=== PATIENT | female | born 1970 | race Caucasian/White ===

== ENCOUNTER 2019-07-17 20:41 | Emergency (ER) | payer BC ==
[~2019-07-17] VITALS: Ht 165.1 cm; Wt 95.3 kg
[2019-07-17 20:41] VITALS: BP_SYST 130
[2019-07-17 21:35] LABS: BASOPHILS % (AUTO) 0.5 % (0.0-2.0); EOSINOPHILS % (AUTO) 0.3 % (0.0-4.0); HEMATOCRIT 29.7 % (36-48); HEMOGLOBIN 9.6 g/dL (12.0-16.0); LYMPHOCYTES # (AUTO) 1.9 K/uL (1.0-5.5); LYMPHOCYTES % (AUTO) 24.8 % (20.5-51.5); MEAN CORPUSCULAR HEMOGLOBIN 26 pg (27-31); MEAN CORPUSCULAR HGB CONC 32 % (32-36); MEAN CORPUSCULAR VOLUME 81 fL (79.0-98.0); MONOCYTES # (AUTO) 0.4 K/uL (0.0-1.0); MONOCYTES % (AUTO) 5.8 % (1.7-9.3); NEUTROPHILS # (AUTO) 5.3 K/uL (1.8-7.7); NEUTROPHILS % (AUTO) 68.6 % (40.0-70.0); PLATELET COUNT (AUTO) 381 K/uL (130-430); RED BLOOD CELL COUNT(AUTO) 3.66 MIL/uL (4.2-6.2); RED CELL DISTRIBUTION WIDTH 16.9 % (9.0-15.0); WHITE BLOOD COUNT (AUTO) 7.7 K/uL (4.8-10.8)
[2019-07-17 21:40] LABS: CALCIUM 8.7 mg/dL (8.4-11.0); CREATININE 0.77 mg/dL (0.55-1.30); POTASSIUM 3.8 mmol/L (3.5-5.1)
[2019-07-17 21:52] LABS: ALBUMIN 3.4 g/dL (3.4-4.8)
[2019-07-17 22:05] LABS: TOTAL BILIRUBIN 0.4 mg/dL (0.0-1.0)
[2019-07-17 22:48] LABS: BILIRUBIN,URINE NEGATIVE (NEGATIVE); BLOOD, URINE 3+ (NEGATIVE); CLARITY/URINE CLEAR (CLEAR); COLOR,URINE YELLOW (YELLOW); GLUCOSE,URINE NEGATIVE (NEGATIVE); KETONES,URINE NEGATIVE (NEGATIVE); LEUKOCYTE ESTERASE ,URINE NEGATIVE (NEGATIVE); NITRITE, URINE NEGATIVE (NEGATIVE); PROTEIN URINE TRACE (NEGATIVE); UROBILINOGEN,URINE 0.2 (0.2-1.0)
[2019-07-17 22:53] LABS: BACTERIA,URINE FEW /HPF (None Seen); RBC,URINE >100 /HPF (0-3); WBC,URINE 0-3 /HPF (0-3)
[2019-07-17 23:00] LABS: BARBITURATE, URINE NEGATIVE (NEG <=200); BENZODIAZEPINE, URINE NEGATIVE (NEG <=150); CANNABINOID, URINE NEGATIVE (NEG <=50); COCAINE, URINE NEGATIVE (NEG <=150); METHAMPHETAMINES SCREEN,URINE NEGATIVE (NEG <=500); OPIATE, URINE NEGATIVE (NEG <=100); PHENCYCLIDINE SCREEN,URINE NEGATIVE (NEG <=25); UR TRICYCLIC ANTIDEPRESSANTS NEGATIVE (NEG <=300); URINE AMPHETAMINE NEGATIVE (NEG <=500); URINE METHADONE NEGATIVE (NEG <=200); URINE OXYCODONE SCREEN NEGATIVE (NEG <=100); URINE PROPOXYPHENE SCREEN NEGATIVE (NEG <=300)
[2019-07-17] MEDS ORDERED: levETIRAcetam 500 MG TABLET PO ONE (23:30)
[2019-07-17 23:50] VITALS: BP_SYST 132
== END 2019-07-17 23:50 | disposition home or self-care (01) ==
LOC: SED 20:41
DX: G40.909 Epilepsy, unspecified, not intractable, without status epilepticus (principal)
CPT/HCPCS: 36415; 80053; 80307; 81000-TC; 84702-TC; 85025; 99284

== ENCOUNTER 2020-08-16 21:50 | Emergency (ER) | payer BC ==
[~2020-08-16] VITALS: Ht 165.1 cm; Wt 99.8 kg
[2020-08-16 21:55] VITALS: BP_SYST 108
--- NOTE | 2020-08-16 21:56 | NUR ---
Patient to ER bed 1 to gown for evaluation. Side rails up. Report given to GERRY Riggs.
--- NOTE | 2020-08-16 21:57 | NUR ---
Seizure precautions started at this time.
--- NOTE | 2020-08-16 21:58 | NUR ---
Pt brought by ambulance, A&Ox3, pt presents to ER with possible seizure, per Daughter pt was on the floor with eyes rolling after taking a shower, pt has Hx of seizures, c/o mild jaw pain, VSS, skin pink and warm, cap refill <3, respirations even and unlabored.
[2020-08-16] MEDS ORDERED: LEVE250T2 PO (22:07)
--- NOTE | 2020-08-16 22:30 | NUR ---
PIV 20 guage inserted to left AC. good blood return and flushes without difficulties. labs drawn and sent to lab for analysis.
--- NOTE | 2020-08-16 23:15 | NUR ---
Report given to October RN
--- NOTE | 2020-08-16 23:44 | NUR ---
ER Dr. Lindsey at bedside examining patient.
[2020-08-17] MEDS ORDERED: levETIRAcetam 1,000 MG IV BAG 100 ML IV ONE
--- NOTE | 2020-08-17 00:05 | NUR ---
Patient states " I have headache." Dr. Lindsey notified.
[2020-08-17 00:07] LABS: BASOPHILS % (AUTO) 0.4 % (0.0-2.0); BILIRUBIN,URINE NEGATIVE (NEGATIVE); CLARITY/URINE CLEAR (CLEAR); COLOR,URINE YELLOW (YELLOW); EOSINOPHILS % (AUTO) 0.4 % (0.0-4.0); GLUCOSE,URINE NEGATIVE (NEGATIVE); HEMATOCRIT 30.9 % (36-48); HEMOGLOBIN 9.8 g/dL (12.0-16.0); KETONES,URINE NEGATIVE (NEGATIVE); LEUKOCYTE ESTERASE ,URINE NEGATIVE (NEGATIVE); LYMPHOCYTES # (AUTO) 2.6 K/uL (1.0-5.5); LYMPHOCYTES % (AUTO) 29.3 % (20.5-51.5); MEAN CORPUSCULAR HEMOGLOBIN 26 pg (27-31); MEAN CORPUSCULAR HGB CONC 32 % (32-36); MEAN CORPUSCULAR VOLUME 82 fL (79.0-98.0); MONOCYTES # (AUTO) 0.5 K/uL (0.0-1.0); MONOCYTES % (AUTO) 5.8 % (1.7-9.3); NEUTROPHILS # (AUTO) 5.8 K/uL (1.8-7.7); NEUTROPHILS % (AUTO) 64.1 % (40.0-70.0); NITRITE, URINE NEGATIVE (NEGATIVE); PH,URINE 5.5 (5.0-8.0); PLATELET COUNT (AUTO) 352 K/uL (130-430); PROTEIN URINE NEGATIVE (NEGATIVE); RED BLOOD CELL COUNT(AUTO) 3.77 MIL/uL (4.2-6.2); RED CELL DISTRIBUTION WIDTH 17.1 % (9.0-15.0); UROBILINOGEN,URINE 0.2 (0.2-1.0)
[2020-08-17 00:08] LABS: BLOOD, URINE TRACE (NEGATIVE)
[2020-08-17] MEDS ORDERED: ACETAMINOPHEN 500 MG TABLET ONE (00:09)
[2020-08-17 00:10] LABS: CALCIUM 8.7 mg/dL (8.4-11.0); CREATININE 1.26 mg/dL (0.55-1.30); POTASSIUM 3.7 mmol/L (3.5-5.1)
[2020-08-17 00:15] LABS: ALBUMIN 3.4 g/dL (3.4-4.8)
[2020-08-17] MEDS ORDERED: ACETAMINOPHEN 500 MG TABLET PO ONE (00:15)
[2020-08-17] MEDS ORDERED: LEVE1000 PO (00:16)
[2020-08-17 00:18] LABS: BARBITURATE, URINE NEGATIVE (NEG <=200); BENZODIAZEPINE, URINE NEGATIVE (NEG <=150); CANNABINOID, URINE NEGATIVE (NEG <=50); COCAINE, URINE NEGATIVE (NEG <=150); METHAMPHETAMINES SCREEN,URINE NEGATIVE (NEG <=500); OPIATE, URINE NEGATIVE (NEG <=100); PHENCYCLIDINE SCREEN,URINE NEGATIVE (NEG <=25); UR TRICYCLIC ANTIDEPRESSANTS NEGATIVE (NEG <=300); URINE AMPHETAMINE NEGATIVE (NEG <=500); URINE METHADONE NEGATIVE (NEG <=200); URINE OXYCODONE SCREEN NEGATIVE (NEG <=100); URINE PROPOXYPHENE SCREEN NEGATIVE (NEG <=300)
[2020-08-17 00:22] LABS: BACTERIA,URINE FEW /HPF (None Seen); WBC,URINE 0-3 /HPF (0-3)
[2020-08-17 00:34] LABS: TOTAL BILIRUBIN 0.2 mg/dL (0.0-1.0)
--- NOTE | 2020-08-17 00:55 | NUR ---
Patient resting quietly. No acute distress noted. Vital signs within normal range.
[2020-08-17 01:45] VITALS: BP_SYST 147
--- NOTE | 2020-08-17 01:45 | NUR ---
Patient given written and verbal discharge instructions and verbalizes understanding. Dr. César CADE MD discussed with patient the results and treatment provided. Patient in stable condition. ID arm band removed. IV catheter removed intact and dressing applied, no active bleeding. Patient educated on pain management and to follow up with PMD. Pain Scale 0/10. Opportunity for questions provided and answered.
== END 2020-08-17 01:45 | disposition home or self-care (01) ==
LOC: SED 21:50
DX: R56.9 Unspecified convulsions (principal)
CPT/HCPCS: 36415; 80053; 80307; 81000; 81025; 85025; 96365; 96366; 99285; J1953